=== PATIENT | male | born 1980 | race Caucasian/White ===

== ENCOUNTER → 2018-01-26 14:45 | Outpatient (CLI) | payer BC, SELFPAY ==
[2018-01-26 15:38] LABS: Basophils % 0.6 % (0.1-2.0); Eosinophils # 0.2 K/mm3 (0.0-0.4); Eosinophils % 3.7 % (0.1-12.0); Hematocrit 45.3 % (42.0-52.0); Hemoglobin 14.7 g/dL (14.1-18.0); Lymphocytes # 1.7 K/mm3 (0.7-4.5); Lymphocytes % 27.8 K/mm3 (10-50); Mean Corpuscular HGB Conc 32.5 g/dL (31.8-35.4); Mean Corpuscular Hemoglobin 29.5 pg (27.0-31.2); Mean Corpuscular Volume 90.7 fl (80-94); Mean Platelet Volume 8.3 fl (7.4-10.4); Monocytes # 0.4 K/mm3 (0.1-1.0); Monocytes % 5.8 % (1.7-9.3); Neutrophils # 3.7 K/mm3 (1.8-7.8); Neutrophils % 62.1 % (37.0-80.0); Platelet Count 179 K/mm3 (142-424); Red Cell Distribution Width 13.2 % (11.5-17.5)
[2018-01-26 16:34] LABS: Alanine Aminotransferase 38 U/L (12-78); Albumin Level 4.1 gm/dL (3.4-5.0); Albumin/Globulin Ratio 1.5 (1.1-1.8); Alkaline Phosphatase 61 U/L (46-116); Anion Gap 7.3 mEq/L (5-15); Aspartate Amino Transferase 30 U/L (15-37); Bilirubin,Total 0.5 mg/dL (0.2-1.0); Blood Urea Nitrogen 15 mg/dL (7-18); Calcium 9.2 mg/dL (8.5-10.1); Carbon Dioxide 32 mmol/L (21.0-32.0); Chloride 106 mmol/L (98-107); Creatinine,Serum 0.97 mg/dL (0.70-1.30); Estimated Glomerular Filt Rate 87 ml/min (>60); GFR (African American) 105 ML/MIN (>60); Globulin 2.8 gm/dl (1.3-3.2); Glucose 96 mg/dL (74-106); Magnesium 2.1 mg/dL (1.4-2.2); Potassium 4.3 mmoL/L (3.5-5.1); Sodium 141 mmol/L (136-145); Thyroid Stimulating Hormone 1.13 uIU/ml (0.358-3.740); Total Protein,Serum 6.9 gm/dL (6.4-8.2)
== END ==
LOC: LAB 14:51 → RT 15:00
PROVIDERS: PCP Nurse Practitioner Family; Visit Provider Nurse Practitioner Family
DX: I49.9 Cardiac arrhythmia, unspecified (principal); R00.1 Bradycardia, unspecified
CPT/HCPCS: 36415; 80053; 83735; 84443; 85025; 93225; 93226

== ENCOUNTER → 2019-05-17 15:58 | Outpatient (CLI) | payer OTHER, SELFPAY ==
--- NOTE | 2019-05-17 16:10 | ECG_ITS ---
APPROVED REPORT Exam: Resting ECG HR:64 bpm ECG Measurements Heart Rate [address] 178 P 72 QRSd 90 QRS 74 QT 396 T 45 QTc 408 <Conclusion> Normal sinus rhythm with sinus arrhythmia Normal ECG Electronically signed by : Bne Mae, 05/20/2019 11:43:32
== END ==
PROVIDERS: PCP Family Medicine; Visit Provider Nurse Practitioner
DX: I49.3 Ventricular premature depolarization (principal)
CPT/HCPCS: 93005

== ENCOUNTER → 2019-06-28 15:09 | Outpatient (CLI) | payer OTHER, SELFPAY ==
--- NOTE | 2019-06-28 | ECG_ITS ---
APPROVED REPORT Exam: Resting ECG HR:58 bpm ECG Measurements Heart Rate 58 AXES [place] 174 P 23 QRSd 102 QRS 65 QT 406 T 42 QTc 398 <Conclusion> Sinus bradycardia Otherwise normal ECG Electronically signed by : Ben Mae, 06/28/2019 18:04:13
== END ==
PROVIDERS: PCP Family Medicine; Visit Provider Nurse Practitioner
DX: R00.2 Palpitations (principal); I49.3 Ventricular premature depolarization
CPT/HCPCS: 93005

== ENCOUNTER → 2020-11-03 15:33 | Outpatient (CLI) | payer OTHER, SELFPAY ==
--- NOTE | 2020-11-03 15:36 | XR_ITS ---
PROCEDURE: XR KUB CLINICAL INDICATION: rt flank pain COMPARISON: No exams were available for comparison FINDINGS: Nonspecific bowel gas pattern. Mild amount of retained colonic feces. No definite renal or ureteral calculi. There are multiple pelvic calcifications consistent with phleboliths. IMPRESSION: No acute findings. Dictated by: Sedrick De Los Santos MD 11/03/2020 16:12 Sedrick De Los Santos MD in [place] 11/03/2020 16:12
== END ==
PROVIDERS: PCP Family Medicine; Visit Provider Urology
DX: R10.9 Unspecified abdominal pain (principal)
CPT/HCPCS: 74018

== ENCOUNTER → 2021-06-11 16:41 | Outpatient (CLI) | payer OTHER, SELFPAY | PROVIDERS: PCP Family Medicine; Visit Provider Urology | DX: R00.2 Palpitations (principal) | CPT/HCPCS: 93225; 93226 ==

== ENCOUNTER → 2021-06-14 12:59 | Outpatient (CLI) | payer OTHER, SELFPAY ==
--- NOTE | 2021-06-14 13:00 | CA_ITS ---
APPROVED REPORT Exam: Exercise Treadmill Technologist: Nadine Porter, Ht: 5 ft 9 in Wt: 219 lbs BSA: 2.15 m2 HR: 60 bpm BP: 134/86 mmHg Medical History Medications: Acetaminophen,,,,, Ibuprofen,,,,, Baclofen,,,,, Stress Test Details Test: Quirino HR Resting HR: 83 bpm Max Heart Rate (APMHR): 178 bpm Max HR Achieved: 166 bpm Target HR (85% APMHR): 151 bpm % of APMHR: 93 Recovery HR: 90 bpm BP Resting BP: 127/93 mmHg Max BP: 185/95 mmHg Recovery BP: 148.0/89.0 mmHg ECG Clinical Exercise duration: 12:01 min Highest Stage Achieved: Exercise capacity: 12.8 METs Stress ECG Conclusion Test stopped due to: fatigue Symptoms: no chest pain. no soa. Arrhythmias/Ectopy: PVC's noted. Normal GXT Test Summary REST . . . . . . . Sitting REST . . . . . . . Standing REST 12:13 0.0 0.0 83 . 127/ 93 . . Stage 1 01:00 10.0 1.7 88 . . . . Stage 1 02:00 10.0 1.7 88 . . . . Stage 1 03:00 10.0 1.7 86 . 140/ 84 . . Stage 2 01:00 12.0 2.5 102 . . . . Stage 2 02:00 12.0 2.5 101 . . . . Stage 2 03:00 12.0 2.5 103 . 150/ 90 . . Stage 3 01:00 14.0 3.4 114 . . . . Stage 3 02:00 14.0 3.4 117 . . . . Stage 3 03:00 14.0 3.4 120 . 162/100 . . Stage 4 01:00 16.0 4.2 146 . . . . Stage 4 02:00 16.0 4.2 158 . . . . Stage 4 03:00 16.0 4.2 166 . . . . Stage 5 00:01 18.0 5.0 166 . . . Stop exercise at 12:01 RECOVERY 01:00 0.0 0.0 130 . . . . RECOVERY 02:00 0.0 0.0 102 . . . . RECOVERY 03:00 0.0 0.0 98 . 185/ 95 . . RECOVERY 04:00 0.0 0.0 90 . 185/ 95 . . RECOVERY 05:00 0.0 0.0 91 . 174/ 92 . . RECOVERY 06:00 0.0 0.0 91 . 148/ 89 . . RECOVERY 06:02 0.0 0.0 90 . 148/ 89 . . Electronically signed by : Stephan Mcginnis MD 06/14/2021 20:27:18
== END ==
PROVIDERS: PCP Family Medicine; Visit Provider Urology
DX: R00.2 Palpitations (principal)
CPT/HCPCS: 93017; 93306

== ENCOUNTER 2022-05-16 15:15 | Emergency (ER) | payer BC, SELFPAY ==
[2022-05-16 15:16] VITALS: BP 141/92; PULSE 64; RESP 18; TEMP 36.7; O2SAT 98; BMI 30.2
--- NOTE | 2022-05-16 16:57 | EXP.UTC ---
Discharge Plan Disposition Patient Disposition: Home, Self-Care Condition: Good Prescriptions Prescriptions: New azithromycin [Zithromax Z-Kwesi] 250 mg tablet See Rx Instructions .ROUTE .COMPLEX 5 Days Qty: 6 0RF Rx Instructions: For 250 mg dose pack: take 500 mg today (day 1), then 250 mg for 4 days (days 2-5) benzonatate 100 mg capsule 100 mg PO TID PRN (Reason: cough) Qty: 30 0RF methylprednisolone [Medrol (Kwesi)] 4 mg tablets,dose pack See Rx Instructions .Route .COMPLEX 6 Days Qty: 21 0RF Rx Instructions: taper pack; No Action baclofen 10 mg tablet 10 mg PO DAILY PRN propranolol [Inderal LA] 60 mg capsule,extended release 24 hr 60 mg PO DAILY Qty: 30 3RF acetaminophen 500 MG tablet 1,000 mg PO TID PRN (Reason: (Chimney [employer] Use Only) Pain Per Pt) Qty: 60 0RF ibuprofen 600 MG tablet 600 mg PO Q6H Qty: 30 0RF Referrals Follow up/Referrals: Raul Vaca [Primary Care Provider] - See instructions Activity Restrictions/Add. Instructions Additional Instructions/Restrictions: *Monitor Temp, Over the counter Motrin or Tylenol as directed/as needed Tylenol every 4 hours and Motrin every 6 hours (as long as your family doctor has told you that you can take it) for fever or pain. and straight to ER if unable to lower temp less than 101.0 after medication given *Warm salt water gargles may help to soothe the throat *Throat Lozenges? *Warm fluids like tea with honey may help to soothe the throat? *Sleep elevated *Humidifier/Vaporizer Your throat swab was sent for culture. Those results are typically sent to your primary care. Be sure to follow up in 2-3 days with your family doctor/primary care physician if no improvement so they can review those result and treat if necessary. If you don?t have a primary care doctor, I recommend you get one but in the mean time, you will have to return to a walk in clinic Follow up IMMEDIATELY for new or worsening symptoms or no Noticeable improvement over the next 48-72 hours. 911 for difficulty breathing or swallowing You were tested for today for COVID19 your test result should be back in the next 24-48 hours, you may check your results on the [facility] My Health Portal Clinical Impressions Clinical Impression: Upper respiratory infection Stand Alone Forms Stand Alone Forms: Work/School Release Instructions Patient Instructions: DI for Acute Bronchitis, DI for Sinusitis Discharge ED Provider: Maile Galaviz [facility] [place] HPI General Stated complaint: sore throat, body aches Mode of Arrival: Ambulatory Source of Information: Patient Limitations: No Limitations Time Seen by Provider: 05/16/22 16:57 Description of Symptoms (Recalled from Triage Doc. by RN): sore throat, aches, and slight fever HEENT Symptoms (Recalled from RN notes): Yes Resp Symptoms (Recalled from RN notes): No Skin Symptoms (Recalled from RN notes): No MS Symptoms (Recalled from RN notes): No Functional Status (Recalled from RN notes): n/a History of Present Illness Provider Complaint: Patient states that he has been having sore throat, body aches, fever, and sinus congestion and pressure for several days that has continued to get worse States that today he was feeling worse so he came in to get checked Related Data Home Medications Medication Instructions Recorded Confirmed baclofen 10 mg tablet 10 mg PO DAILY PRN 06/09/21 06/22/21 Previous Rx's Medication Instructions Recorded acetaminophen 500 mg tablet 1,000 mg PO TID PRN (Chimney [employer] Use Only) 09/26/19 Pain Per Pt #60 tabs ibuprofen 600 mg tablet 600 mg PO Q6H #30 tabs 09/26/19 propranolol 60 mg capsule,24 60 mg PO DAILY #30 caps 06/22/21 hr,extended release (Inderal LA) azithromycin 250 mg tablet See Rx Instructions PO .COMPLEX 5 05/16/22 (Zithromax Z-Kwesi) days #6 tabs benzonatate 100 mg capsule 100 mg PO TID PRN cough #30 caps 05/16/22 methylprednisolone 4 mg tablets in See Rx Instructions
[2022-05-16 17:02] LABS: UTC Influenza A Antigen Negative (Negative); UTC Strep Screen (Rapid) Negative (Negative)
[2022-05-16 17:03] LABS: UTC Influenza B Antigen Negative (Negative)
[2022-05-16 17:27] VITALS: BP 141/92; PULSE 64; RESP 18; TEMP 36.7; O2SAT 98
== END 2022-05-16 17:27 | disposition home or self-care (01) ==
PROVIDERS: Emergency Provider Nurse Practitioner; PCP Family Medicine
DX: J02.9 Acute pharyngitis, unspecified (principal); J06.9 Acute upper respiratory infection, unspecified; M79.10 Myalgia, unspecified site; R50.9 Fever, unspecified; Z79.1 Long term (current) use of non-steroidal anti-inflammatories (NSAID); Z79.52 Long term (current) use of systemic steroids; Z79.899 Other long term (current) drug therapy
CPT/HCPCS: 87804; 87880; 99213; G0463

== ENCOUNTER 2022-07-14 13:40 | Emergency (ER) | payer BC, SELFPAY ==
[2022-07-14 13:41] VITALS: BP 150/104; PULSE 76; RESP 16; TEMP 36.7; O2SAT 98; BMI 32.5
[2022-07-14 14:50] LABS: Microscopic, Urine URINE MICROSCOPIC (MICROSCOPIC)
[2022-07-14 14:51] LABS: Appearance,Urine CLEAR (Clear); Bilirubin,Urine Negative (Negative); Blood, Urine Negative (Negative); Color,Urine YELLOW (Yellow); Glucose,Urine (UA) Negative (Negative); Ketones,Urine Negative (Negative); Leukocyte Esterase,Urine Negative (Negative); Nitrate,Urine Negative (Negative); PH,Urine 5.5 (5.0-8.5); Protein,Urine Negative (Negative); Urobilinogen,Urine 0.2 EU/dl (0.2)
--- NOTE | 2022-07-14 14:53 | PC.NURSE ---
CONNOR BARRIGA at
--- NOTE | 2022-07-14 14:57 | CT_ITS ---
FINAL REPORT TECHNIQUE: Axial CT images were performed from the lung bases through the pubic symphysis. Coronal reformats were submitted and reviewed. This study was performed with techniques to keep radiation doses as low as reasonably achievable (ALARA). Individualized dose reduction techniques using automated exposure control or adjustment of mA and/or kV according to the patient's size were employed. CLINICAL HISTORY: Right sided stone suspected, pain FINDINGS: Abdomen: There is mild bibasilar atelectasis. The gallbladder is present. The liver, spleen and pancreas are unremarkable. There are no adrenal masses. There is no nephrolithiasis. There is no hydronephrosis. There is a 9 mm mass in the mid right kidney that cannot be accurately characterized but may represent a cyst. Pelvis: The appendix is unremarkable. There are no distal ureteral stones. The urinary bladder is unremarkable. There are fluid levels throughout much of the colon that is nonspecific. IMPRESSION: No renal stone or hydronephrosis. Fluid levels throughout much of the colon are nonspecific and could represent enteritis/colitis. 9 mm mass in the mid right kidney cannot be accurately characterized but may represent a cyst. Normal appendix. Reviewed, Interpreted and Dictated by Kavon Busby III, MD Transcribed by French Holloway Authenticated and [facility]
[2022-07-14 15:09] LABS: Squamous Epithelial Cell,Urine Occasional #/hpf (0-5)
--- NOTE | 2022-07-14 15:10 | HMH.EDGENADL ---
Discharge Plan Disposition Patient Disposition: Home, Self-Care Condition: Good Chief Complaint: PAIN Prescriptions Prescriptions: No Action baclofen 10 mg tablet 10 mg PO DAILY PRN propranolol [Inderal LA] 60 mg capsule,extended release 24 hr 60 mg PO DAILY Qty: 30 3RF acetaminophen 500 MG tablet 1,000 mg PO TID PRN (Reason: (College [employer] Use Only) Pain Per Pt) Qty: 60 0RF ibuprofen 600 MG tablet 600 mg PO Q6H Qty: 30 0RF azithromycin [Zithromax Z-Kwesi] 250 mg tablet See Rx Instructions .ROUTE .COMPLEX 5 Days Qty: 6 0RF Rx Instructions: For 250 mg dose pack: take 500 mg today (day 1), then 250 mg for 4 days (days 2-5) benzonatate 100 mg capsule 100 mg PO TID PRN (Reason: cough) Qty: 30 0RF methylprednisolone [Medrol (Kwesi)] 4 mg tablets,dose pack See Rx Instructions .Route .COMPLEX 6 Days Qty: 21 0RF Rx Instructions: taper pack; Referrals Follow up/Referrals: Raul Vaca [Primary Care Provider] - See instructions Activity Restrictions/Add. Instructions Additional Instructions/Restrictions: Take Tylenol and Motrin every 6 hours with food and water to ensure improvement in symptoms. Follow-up with your primary care provider regarding this visit to the emergency department and further management as needed. If you have any other concerning signs or symptoms, return to your family doctor or the ED for further evaluation. Clinical Impressions Clinical Impression: Abdominal wall pain in right flank Discharge ED Provider: Dakota Coles General Adult HPI General Chief complaint: PAIN Stated complaint: possible kidney stone Time Seen by Provider: 07/14/22 14:45 Mode of Arrival: Ambulatory Source of Information: Patient Limitations: No Limitations Description of Symptoms (Recalled from ER Triage Doc. by RN): Pt c/o R flank pain that began monday night, pt reports yesterday began having pain also in R lower abd. Pt denies urinary symtpoms. Pt reports hx of kidney stones. History of Present Illness HPI narrative: This is a 42-year-old male with history of kidney stones in the past necessitating stenting and lithotripsy who is presenting with right flank and abdominal pain. Patient states , he began having right flank pain that was severe, 8 out of 10, stabbing. It has since radiated and moved to his right lower quadrant and radiates through to his right flank. Intermittently 4-8 out of 10 and waxes and wanes. He has not tried any interventions to make it better. Denies dysuria, hematuria, nausea, vomiting, diarrhea, anorexia, or any other concerns. History relevant for hard work over the past couple of days, he just thought it was a pulled muscle until it migrated to his right lower quadrant. Related Data Home Medications Medication Instructions Recorded Confirmed baclofen 10 mg tablet 10 mg PO DAILY PRN 06/09/21 06/22/21 Previous Rx's Medication Instructions Recorded acetaminophen 500 mg tablet 1,000 mg PO TID PRN (College [employer] Use Only) 09/26/19 Pain Per Pt #60 tabs ibuprofen 600 mg tablet 600 mg PO Q6H #30 tabs 09/26/19 propranolol 60 mg capsule,24 60 mg PO DAILY #30 caps 06/22/21 hr,extended release (Inderal LA) azithromycin 250 mg tablet See Rx Instructions PO .COMPLEX 5 05/16/22 (Zithromax Z-Kwesi) days #6 tabs benzonatate 100 mg capsule 100 mg PO TID PRN cough #30 caps 05/16/22 methylprednisolone 4 mg tablets in See Rx Instructions .Route 05/16/22 a dose pack (Medrol (Kwesi)) .COMPLEX 6 days #21 tabs Allergies Allergy/AdvReac Type Severity Reaction Status Date / Time No Known Allergies Allergy Verified 06/22/21 15:20 [facility] Disclaimer: The information contained in this section may have been updated after the patient was seen, as this information can be updated by other users. Social History Smoking Status: Never smoker alcohol intake: current substance use type: denies use current occupational status: employed Travel in the last
--- NOTE | 2022-07-14 15:15 | PC.NURSE ---
pt returned from radiology ambulatory with no complications.
[2022-07-14 17:15] VITALS: BP 161/103; PULSE 62; RESP 18; TEMP 36.8; O2SAT 99
== END 2022-07-14 17:15 | disposition home or self-care (01) ==
PROVIDERS: Emergency Provider Emergency Medicine; PCP Family Medicine
DX: R10.31 Right lower quadrant pain (principal); R05.9 Cough, unspecified; Z79.1 Long term (current) use of non-steroidal anti-inflammatories (NSAID); Z79.52 Long term (current) use of systemic steroids; Z79.899 Other long term (current) drug therapy; Z87.442 Personal history of urinary calculi
CPT/HCPCS: 74176; 81001; 96372; 99285